=== PATIENT | male | born 1975 | race Caucasian/White ===

== ENCOUNTER 2016-09-26 13:15 | Emergency (ER) | payer OTHER ==
[2016-09-26 15:13] LABS: HEMOGLOBIN 16.1 gm/dl (14.0-17.5); RED BLOOD COUNT 5.26 M/UL (4.20-5.50); WHITE BLOOD COUNT 7.7 K/UL (4.5-11.0)
[2016-09-26 15:29] LABS: BUN/CREATININE RATIO 8 (0-10)
== END 2016-09-26 16:05 | disposition home or self-care (01) ==
LOC: ER1 13:15
PROVIDERS: Physician Assistant
DX: B34.9 Viral infection, unspecified (principal); M79.1 Myalgia; F32.9 Major depressive disorder, single episode, unspecified; R35.0 Frequency of micturition; I10 Essential (primary) hypertension; Z90.49 Acquired absence of other specified parts of digestive tract; Z88.0 Allergy status to penicillin
CPT/HCPCS: 36415; 80053; 81001; 85025; 99283

== ENCOUNTER → 2021-11-13 | Outpatient (CLI) | payer OTHER | LOC: KOH-I 16:26 | DX: M25.511 Pain in right shoulder (principal) | CPT/HCPCS: 73030 ==

== ENCOUNTER → 2021-11-26 | Outpatient (CLI) | payer OTHER | LOC: EMI 11-20 08:15 | DX: M75.51 Bursitis of right shoulder (principal); M25.411 Effusion, right shoulder | CPT/HCPCS: 73221 ==